=== PATIENT | female | born 1955 | race Caucasian/White ===

== ENCOUNTER 2018-02-23 21:04 | Observation (INO) ==
--- NOTE | 2018-02-23 21:33 | ED ---
HPI General Chief complaint: Stroke Alert Stated complaint: Neuro Symptoms Time Seen by Provider: 02/23/18 21:09 Source: patient Limitations: no limitations History of Present Illness HPI narrative: The patient is a 62 year old female who presents to the [facility] emergency department with a history of beginning to have an abnormal sensation in her head at approximately 8:35 to 8:40 PM tonight. The patient is visiting from out of town and residing at a hotel with her family. Her family was with her when this began. She reports that she has a sensation that her head is expanding and then aretha. She denies having a headache. She has not had any slurred speech, however she became anxious and then began to have difficulty with word finding ability. She reports having lower extremity weakness. She denies having any one-sided weakness. 1 of her family members is a nuclear radiologist and did a stroke assessment on her that showed no focal weakness. They deny her having any facial asymmetry. She does have a history of anxiety, however she is never had a panic attack quite like this previously. The patient does have a history of atrial fibrillation and is on Coumadin. Her last INR was checked and found to be therapeutic 3 weeks ago. The patient is on 5 mg of Coumadin alternating with 7.5. On review of systems otherwise, the patient denies having any known recent fevers, cough, congestion, neck pain , chest pain, shortness of breath, abdominal pain, vomiting, diarrhea, urinary symptoms, or other neurologic symptoms. Related Data Home Medications Medication Instructions Recorded Confirmed hydrochlorothiazide 12.5 mg PO DAILY 02/23/18 02/23/18 lisinopril 20 mg PO DAILY 02/23/18 02/23/18 dronedarone [Multaq] 400 mg PO BID 02/24/18 02/24/18 simvastatin 20 mg PO QPM 02/24/18 02/24/18 warfarin [Coumadin] 5 mg PO 4XW 02/24/18 02/24/18 warfarin [Coumadin] 7.5 mg PO 3XW 02/24/18 02/24/18 Allergies Allergy/AdvReac Type Severity Reaction Status Date / Time codeine Allergy Nausea Verified 02/23/18 21:20 Review of Systems ROS: all other systems reviewed are negative [facility] Medical History Medical History Afib (Acute) Diabetes mellitus (Acute) History of hysterectomy (Acute) Hypercholesteremia (Acute) Hypertension (Acute) PVC (premature ventricular contraction) (Acute) Pacemaker (Acute) Sick sinus syndrome (Acute) Sleep apnea (Acute) Surgical History Surgical History H/O cervical biopsy (Acute) History of delivery (Acute) Hx of cholecystectomy (Acute) Social History Social History Substance History: No History of Abuse Second Hand Smoke Exposure: No Smoking Status: Never smoker How Often Do You Have a Drink Containing Alcohol: Never Recent Travel in [facility] within the Last 8 Weeks: No Recent Out of Country Travel within the Last 8 Weeks: No Exam Const General: cooperative, well developed and acute distress (the patient reports feeling anxious regarding her symptoms.) mild Nutritional Appearance: well nourished and obese Orientation: alert, awake and oriented x3 HENMT Head: normocephalic and atraumatic Nose: no nasal discharge and no epistaxis Mouth: moist mucous membranes Throat: posterior oropharynx normal and uvula midline Eyes Sclera: normal sclerae Pupils: PERRL EOM: EOM intact bilaterally Neck Neck: no meningeal signs, trachea midline and no JVD Resp Effort & Inspection: no use of accessory muscles Auscultation: clear to auscultation bilaterally Cardio Rate: regular rate Rhythm: regular rhythm Heart Sounds: no gallops, no murmurs and no rubs GI Inspection: non-distended Palpation: soft, no hepatosplenomegaly and nontender Auscultation: normal bowel sounds Back/Spine/Pelvis Back: no CVA tenderness Skin General: dry skin (warm) Neuro General: alert, awake and oriented x3 Cranial Nerves: CN's II-XI intact bilaterally Speech: other (The patient had a recurrence of difficulty with word finding ability after finding out that her blood pressure was elevated. This lasted for a few minutes.) Motor: strength 5/5 throughout and no movement abnormalities noted Sensory Exam: no sensory deficits noted Extrem General: normal to inspection (No calf tenderness on palpation. 2+ pulses in all 4 extremities.), no clubbing, no cyanosis and edema (Trace pedal edema.) Laterality: bilaterally Psych Mood: congruent mood Affect: anxious affect Judgment: judgment good Course Reevaluation(s) Reevaluation #1: The patient was reexamined after coming back from CT scan and reports that her symptoms in her head have improved. She is able to name various objects around the room and "you cannot teach an old dog new tricks." Also on further questioning, the patient reports that she has had difficulty with word finding ability and confusion intermittently for months. On further questioning of her and the family they report that this has been an issue since the beginning of the year. The patient appears to be at her baseline of mentation and neuro exam currently. Time: 22:01 Consultations Consultation #1: The patient's case including history, pertinent physical examination findings, and laboratory studies were discussed with Dr. Ponce. As the patient is on Coumadin he recommended a stat INR. Soon as the patient arrives back from CT for CT scan of the brain, CTA of the head and neck, he recommended reassessment and calling him back on his cell phone. Time: 21:25 Consultation #2: I was called by the laboratory regarding the patient's INR being 1.3. I then spoke to Dr. Miranda again regarding this patient's case. He requests that the CTA of the head be read urgently as it has not been read at this time. A call will be placed out to the radiologist regarding this. Time: 22:17 Consultation #3: The patient's case was discussed with Dr. Malhotra. He reviewed the patient's CTA of the head and neck while I was on the phone with him. He did not see any signs of a retrievable thrombus. This was again communicated back to Dr. Ponce. He recommended that the patient be started on heparin and the patient be given Coumadin 10 mg p.o. The patient's case including history, pertinent physical examination findings, and laboratory studies were discussed with Dr. Benson. It was agreed that the patient would be admitted to the hospitalist service. Time: 22:19 Initial Documented Vital Signs Temperature 98.3 F 02/23/18 22:02 Pulse Rate 62 02/23/18 22:02 Respiratory Rate 19 02/23/18 22:02 Blood Pressure 145/66 H 02/23/18 22:02 Pulse Oximetry 98 02/23/18 22:02 Last Documented Vital Signs Temperature 97.8 F 02/24/18 00:59 Pulse Rate 60 02/24/18 00:59 Respiratory Rate 18 02/24/18 00:59 Blood Pressure 142/63 H 02/24/18 00:59 Pulse Oximetry 98 02/24/18 01:21 Critical Care Time Critical Care Time: Yes Total Critical Care Time: 38 Attestation: Aggregate critical care time was 38 minutes. Time to perform other separately billable procedures was not included in the critical care time. My time did not include minutes spent treating any other patients simultaneously or on activities that did not directly contribute to the patient's treatment. The services I provided to this patient were to treat and/or prevent clinically significant deterioration that could result in: Respiratory failure, versus progression of neurologic symptoms I provided critical care services requiring my management, as noted below: Chart data review, documentation time, medication orders and management, vital sign assessments/reviewing monitor data, ordering and reviewing lab tests, ordering and interpreting/reviewing x-rays and diagnostic studies, care of the patient and discussion of the patient with the admitting physicians. NIH Stroke Scale NIHSS Time Completed NIHSS Time Completed: 21:31 NIH Stroke Scale Level of Consciousness: 0-Alert Orientation Questions: 0-Answers both correct Responds to Commands: 0-Both tasks correct Gaze Eye Movement: 0-Horizontal movement WNL Visual Laboy: 0-No visual field defect Facial Movement: 0-Normal Motor Functions Arm LEFT: 0-No drift Motor Functions Arm RIGHT: 0-No drift Motor Functions Leg LEFT: 0-No drift Motor Functions Leg RIGHT: 0-No drift Limb Ataxia: 0-No ataxia Sensory Loss: 0-No sensory loss Best Language: 1-Mild aphasia (Initially, the patient had no speech problems, however after finding out that her blood pressure was elevated, the patient became anxious and was having difficulty with word finding ability. The patient 's family reports that she was having difficulty with word finding ability at the hotel.) Articulation: 0-Normal Extinction or Inattention Sensory: 0-Absent Total: 1 Medical Decision Making MDM Narrative Medical decision making narrative: During the course of the patient's emergency department visit, the patient's history, examination, and differential diagnosis were reviewed with the patient. The patient was placed on a 3d artist with oximetry and frequent blood pressure monitoring. The patient had IV access obtained and blood work sent for analysis. A stroke alert was called regarding this patient's case. The patient's blood sugar was found to be within normal limits, EKG shows an electronic atrial paced rhythm, sinus rhythm. Heart rate of 61. Initial blood pressure was 224 systolic. This rapidly improved to 170 systolic in route to CT. I spoke to Dr. Ponce, the neurologist business administration program chair regarding this patient's case. He agreed with the plan to proceed with CT scan of the brain without contrast followed by CT a of the head and neck. The patient was initially provided normal saline at 70 mL/h, the patient's head of the bed was placed flat. I-STAT revealed a sodium of 138, potassium 3.7, chloride 103, BUN 20, glucose 113, hemoglobin 12.2, creatinine 0.9. CT scan of the brain was called to me by the reading radiologist, as being negative. I called the lab to find out how much longer on PT/INR- at 1958 and they said "15 minutes". The patient on reexamination after coming back from CT he has had resolution of her symptoms. This was communicated back to Dr. Ponce. The patient was not thought to be a candidate for TPA administration as her symptoms were improved. The patient's INR came back at 1.3 and he recommended that the patient be started on heparin and given Coumadin 10 mg p.o. The patient's CTA of the head and neck showed no acute abnormality. The patient's results were discussed with the patient, including the plan of care. I explained that further testing and/ or monitoring is indicated based on the patient's history, examination, and/ or laboratory findings. Therefore, I recommended admission for additional evaluation. The patient expressed understanding and was agreeable with this plan. The patient was admitted to the hospital in guarded condition and sent to a bed under the care of the [facility] service. Medical Screen Exam Complete: Yes Emergency Medical Condition: Yes Differential Diagnosis Differential Diagnosis: Ischemic stroke, versus hemorrhagic stroke, versus anxiety disorder, versus encephalopathy, versus intracranial mass Medical Records Medical records reviewed: Yes I reviewed the patient's medical records. Lab Data Lab results reviewed: Yes I reviewed the patient's lab results. Result diagrams: 02/23/18 21:30 Lab Results 02/23/18 02/23/18 02/23/18 Range/Units 21:30 21:30 21:30 WBC 6.6 (4.0-11.0) th/mm3 RBC 3.99 L (4.00-5.30) mil/mm3 Hgb 11.7 (11.6-15.3) gm/dL POC Hgb (Calc) 12.2 (11.6-15.3) g/dL Hct 35.3 (35.0-46.0) % POC Hct 36.0 (35-46.0) % MCV 88.5 (80.0-100.0) fL MCH 29.4 (27.0-34.0) pg MCHC 33.2 (32.0-36.0) % RDW 14.1 (11.6-17.2) % Plt Count 242 (150-450) th/mm3 MPV 10.2 (7.0-11.0) fL Neut % (Auto) 44.7 (16.0-70.0) % Lymph % (Auto) 40.1 (9.0-44.0) % [place] % (Auto) 8.1 H (0.0-8.0) % Eos % (Auto) 6.1 H (0.0-4.0) % Baso % (Auto) 1.0 (0.0-2.0) % Neut # (Auto) 2.9 (1.8-7.7) th/mm3 Lymph # (Auto) 2.6 (1.0-4.8) th/mm3 [place] # (Auto) 0.5 (0.0-0.9) th/mm3 Eos # (Auto) 0.4 (0.0-0.4) th/mm3 Baso # (Auto) 0.1 (0.0-0.2) th/mm3 WBC Differential . Differential Comment Auto diff final PT 12.7 H (9.8-11.6) sec INR 1.3 Ratio APTT 31.1 H (24.3-30.1) sec Fibrinogen 242 (227-377) mg/dL POC Sodium 138 (137-144) mmol/L POC Potassium 3.7 (3.6-5.0) mmol/L POC Chloride 103 (102-111) mmol/L POC BUN 20 (5-21) mg/dL POC Creatinine 0.9 (0.6-1.3) mg/dL POC Glucose 113 H (68-110) mg/dL Total Creatine Kinase 92 (26-192) U/L Troponin I Less than 0.02 L (0.02-0.05) ng/mL Urine Color (Yellw/Straw) Urine Clarity (Clear) Urine pH (5.0-8.5) Ur Specific [place] (1.002-1.035) Urine Protein (Neg-Trace) mg/dL Urine Glucose (UA) (Negative) mg/dL Urine Ketones (Negative) mg/dL Urine Occult Blood (Negative) Urine Nitrate (Negative) Urine Bilirubin (Negative) Urine Urobilinogen (Less than 2) mg/dL Ur Leukocyte Esterase (Negative) Urine RBC (0-3) /hpf Urine WBC (0-5) /hpf Ur Squamous Epith Cells (0-5) /hpf Micro UA Comment Ur Microscopic Review Urine Culture Comments Urine Opiates Screen (Neg) Ur Barbiturates Screen (Neg) Ur Amphetamines Screen (Neg) U Benzodiazepines Scrn (Neg) Urine Cocaine Screen (Neg) U Cannabinoids Screen (Neg) Blood Type Antibody Screen 02/23/18 02/23/18 02/23/18 Range/Units 21:30 23:42 23:42 WBC (4.0-11.0) th/mm3 RBC (4.00-5.30) mil/mm3 Hgb (11.6-15.3) gm/dL POC Hgb (Calc) (11.6-15.3) g/dL Hct (35.0-46.0) % POC Hct (35-46.0) % MCV (80.0-100.0) fL MCH (27.0-34.0) pg MCHC (32.0-36.0) % RDW (11.6-17.2) % Plt Count (150-450) th/mm3 MPV (7.0-11.0) fL Neut % (Auto) (16.0-70.0) % Lymph % (Auto) (9.0-44.0) % [place] % (Auto) (0.0-8.0) % Eos % (Auto) (0.0-4.0) % Baso % (Auto) (0.0-2.0) % Neut # (Auto) (1.8-7.7) th/mm3 Lymph # (Auto) (1.0-4.8) th/mm3 [place] # (Auto) (0.0-0.9) th/mm3 Eos # (Auto) (0.0-0.4) th/mm3 Baso # (Auto) (0.0-0.2) th/mm3 WBC Differential Differential Comment PT (9.8-11.6) sec INR Ratio APTT (24.3-30.1) sec Fibrinogen (227-377) mg/dL POC Sodium (137-144) mmol/L POC Potassium (3.6-5.0) mmol/L POC Chloride (102-111) mmol/L POC BUN (5-21) mg/dL POC Creatinine (0.6-1.3) mg/dL POC Glucose (68-110) mg/dL Total Creatine Kinase (26-192) U/L Troponin I (0.02-0.05) ng/mL Urine Color Straw (Yellw/Straw) Urine Clarity Clear (Clear) Urine pH 7.0 (5.0-8.5) Ur Specific [place] 1.026 (1.002-1.035) Urine Protein Negative (Neg-Trace) mg/dL Urine Glucose (UA) Negative (Negative) mg/dL Urine Ketones Negative (Negative) mg/dL Urine Occult Blood Negative (Negative) Urine Nitrate Negative (Negative) Urine Bilirubin Negative (Negative) Urine Urobilinogen Less than 2 (Less than 2) mg/dL Ur Leukocyte Esterase Small H (Negative) Urine RBC Less than 1 (0-3) /hpf Urine WBC 3 (0-5) /hpf Ur Squamous Epith Cells <1 (0-5) /hpf Micro UA Comment Culture not ind Ur Microscopic Review Not Reportable Urine Culture Comments Culture not ind Urine Opiates Screen Neg (Neg) Ur Barbiturates Screen Neg (Neg) Ur Amphetamines Screen Neg (Neg) U Benzodiazepines Scrn Neg (Neg) Urine Cocaine Screen Neg (Neg) U Cannabinoids Screen Neg (Neg) Blood Type O Negative Antibody Screen Negative 02/24/18 Range/Units 01:11 WBC (4.0-11.0) th/mm3 RBC (4.00-5.30) mil/mm3 Hgb (11.6-15.3) gm/dL POC Hgb (Calc) (11.6-15.3) g/dL Hct (35.0-46.0) % POC Hct (35-46.0) % MCV (80.0-100.0) fL MCH (27.0-34.0) pg MCHC (32.0-36.0) % RDW (11.6-17.2) % Plt Count (150-450) th/mm3 MPV (7.0-11.0) fL Neut % (Auto) (16.0-70.0) % Lymph % (Auto) (9.0-44.0) % [place] % (Auto) (0.0-8.0) % Eos % (Auto) (0.0-4.0) % Baso % (Auto) (0.0-2.0) % Neut # (Auto) (1.8-7.7) th/mm3 Lymph # (Auto) (1.0-4.8) th/mm3 [place] # (Auto) (0.0-0.9) th/mm3 Eos # (Auto) (0.0-0.4) th/mm3 Baso # (Auto) (0.0-0.2) th/mm3 WBC Differential Differential Comment PT (9.8-11.6) sec INR Ratio APTT (24.3-30.1) sec Fibrinogen (227-377) mg/dL POC Sodium (137-144) mmol/L POC Potassium (3.6-5.0) mmol/L POC Chloride (102-111) mmol/L POC BUN (5-21) mg/dL POC Creatinine (0.6-1.3) mg/dL POC Glucose 112 H (68-110) mg/dL Total Creatine Kinase (26-192) U/L Troponin I (0.02-0.05) ng/mL Urine Color (Yellw/Straw) Urine Clarity (Clear) Urine pH (5.0-8.5) Ur Specific [place] (1.002-1.035) Urine Protein (Neg-Trace) mg/dL Urine Glucose (UA) (Negative) mg/dL Urine Ketones (Negative) mg/dL Urine Occult Blood (Negative) Urine Nitrate (Negative) Urine Bilirubin (Negative) Urine Urobilinogen (Less than 2) mg/dL Ur Leukocyte Esterase (Negative) Urine RBC (0-3) /hpf Urine WBC (0-5) /hpf Ur Squamous Epith Cells (0-5) /hpf Micro UA Comment Ur Microscopic Review Urine Culture Comments Urine Opiates Screen (Neg) Ur Barbiturates Screen (Neg) Ur Amphetamines Screen (Neg) U Benzodiazepines Scrn (Neg) Urine Cocaine Screen (Neg) U Cannabinoids Screen (Neg) Blood Type Antibody Screen Imaging Data Radiologist's impression: Chest X-Ray 02/23/18 21:24 CONCLUSION: The lungs are clear. Head CT 02/23/18 21:24 CONCLUSION: 1. Negative noncontrast CT brain. Report was called to Dr. Capps at 9:35 PM Head CTA 02/23/18 21:24 CONCLUSION: 1. Negative CTA of the [place]. Neck CTA 02/23/18 21:24 CONCLUSION: 1. No carotid stenosis seen. ECG Data Attestation: I personally reviewed and interpreted this ECG as follows: Interpretation: The patient had an EKG done on arrival that showed an electronic atrial paced rhythm heart rate of 61, QRS duration is 92 ms, QTC 427 ms. T waves are inverted in lead III, V1. No acute ST segment elevation. Discharge Plan Discharge Disposition Patient Disposition: 30 Still Patient Discharge Details Diagnosis: Transient neurologic deficit Physicians Team ED Provider: Haydee Capps Primary Care Provider: UNKNOWN, Attending Provider: Saul López Other Providers: Angela Perla ; Geneva Avila Discharge Interventions Interventions: ED Discharge Assessment Last Done: 02/24/18 00:46 Vital Signs Last Done: 02/23/18 22:37 Status ED Status: Left Department Discharge Information Discharge Date/Time: 02/24/18 00:48
--- NOTE | 2018-02-23 21:37 | CT ---
EXAM DATE: 02/23/2018 9:33 PM EDT AGE/SEX: 62 years / Female INDICATIONS: Stroke alert, altered mental status. CLINICAL DATA: This is the patient's initial encounter. Patient reports that signs and symptoms have been present for 1 day and indicates a pain score of Nonresponsive. MEDICAL/SURGICAL HISTORY: Non-responsive. Non-responsive. RADIATION DOSE: 66.34 CTDI (mGy) COMPARISON: No prior exams available for comparison. TECHNIQUE: CT of the head without contrast. Using automated exposure control and adjustment of the mA and/or kV according to patient size, radiation dose was kept as low as reasonably achievable to ob tain optimal diagnostic quality images. DICOM format image data is available electronically for revi ew and comparison. FINDINGS: Cerebrum: The ventricles are normal for age. No evidence of midline shift, mass lesion, hemorrhage or acute infarction. No extraaxial fluid collections are seen. Posterior Fossa: The cerebellum and brainstem are intact. The 4th ventricle is midline. The cerebe llopontine angle is unremarkable. Extracranial: The visualized portion of the orbits is intact. Skull: The calvaria is intact. No evidence of skull fracture. CONCLUSION: 1. Negative noncontrast CT brain. Report was called to Dr. Capps at 9:35 PM Electronically signed by: Sagar Storey MD 02/23/2018 9:36 PM EDT
[2018-02-23] MEDS: Sod Chloride 0.9% Inj 1,000 ML IV.CONT SCH (21:48)
[2018-02-23 21:53] LABS: Baso # (Auto) 0.1 th/mm3 (0.0-0.2); Eos # (Auto) 0.4 th/mm3 (0.0-0.4); Eos % (Auto) 6.1 % (0.0-4.0); Hematocrit 35.3 % (35.0-46.0); Hemoglobin 11.7 gm/dL (11.6-15.3); Lymph # (Auto) 2.6 th/mm3 (1.0-4.8); Lymph % (Auto) 40.1 % (9.0-44.0); Mean Corpuscular HGB Conc 33.2 % (32.0-36.0); Mean Corpuscular Hemoglobin 29.4 pg (27.0-34.0); Mean Corpuscular Volume 88.5 fL (80.0-100.0); Mean Platelet Volume 10.2 fL (7.0-11.0); Mono # (Auto) 0.5 th/mm3 (0.0-0.9); Mono % (Auto) 8.1 % (0.0-8.0); Neut # (Auto) 2.9 th/mm3 (1.8-7.7); Neut % (Auto) 44.7 % (16.0-70.0); Platelet Count 242 th/mm3 (150-450); Red Blood Count 3.99 mil/mm3 (4.00-5.30); Red Cell Distribution Width 14.1 % (11.6-17.2); White Blood Count 6.6 th/mm3 (4.0-11.0)
[2018-02-23 22:13] LABS: Activated Partial Thrombo Time 31.1 sec (24.3-30.1); INR 1.3 Ratio; Prothrombin Time 12.7 sec (9.8-11.6)
[2018-02-23 22:25] LABS: Creatine Kinase 92 U/L (26-192)
--- NOTE | 2018-02-23 22:25 | XR ---
EXAM DATE: 02/23/2018 10:20 PM EDT AGE/SEX: 62 years / Female INDICATIONS: Stroke alert. CLINICAL DATA: This is the patient's initial encounter. Patient reports that signs and symptoms have been present for 1 day and indicates a pain score of 0/10. MEDICAL/SURGICAL HISTORY: None. Pacemaker. COMPARISON: No prior exams available for comparison. FINDINGS: A single AP view of the chest demonstrates the lungs to be symmetrically aerated without evidence of mass, infiltrate or effusion. The cardiomediastinal contours are unremarkable. Osseous structures a re intact. Pacemaker with 2 cardiac leads. CONCLUSION: The lungs are clear. Electronically signed by: Sagar Storey MD 02/23/2018 10:24 PM EDT
--- NOTE | 2018-02-23 22:25 | CT ---
EXAM DATE: 02/23/2018 10:07 PM EDT AGE/SEX: 62 years / Female INDICATIONS: Stroke alert; weakness. CLINICAL DATA: This is the patient's initial encounter. Patient reports that signs and symptoms have been present for 1 day and indicates a pain score of 0/10. MEDICAL/SURGICAL HISTORY: None. None. RADIATION DOSE: 12.54 CTDI (mGy) COMPARISON: No prior exams available for comparison. TECHNIQUE: Volumetric scanning was performed using a multi-row detector CT scanner during bolus infu darcy of 50 ml Visipaque 320 (iodixanol) nonionic water-soluble contrast as a single exam dose. The data was post processed with a variety of visualization algorithms including full volume maximum int ensity projection, multi-planar sliding thin slab reformation, curved planar reformation, and surface rendering techniques. Using automated exposure control and adjustment of the mA and/or kV according to patient size, radiation dose was kept as low as reasonably achievable to obtain optimal diagnosti c quality images. DICOM format image data is available electronically for review and comparison. FINDINGS: There is excellent visualization of the major intracranial arteries out to the second-order branch ve ssels. The right posterior cerebral artery arises from the anterior circulation. Flow is seen in the anterior communicating artery. There is no evidence for aneurysm, vessel truncation or stenosis, and no evidence for vascular malformation. CONCLUSION: 1. Negative CTA of the [place]. Electronically signed by: Sagar Storey MD 02/23/2018 10:23 PM EDT
--- NOTE | 2018-02-23 22:34 | CT ---
EXAM DATE: 02/23/2018 10:11 PM EDT AGE/SEX: 62 years / Female INDICATIONS: Stroke alert; weakness. CLINICAL DATA: This is the patient's initial encounter. Patient reports that signs and symptoms have been present for 1 day and indicates a pain score of 0/10. MEDICAL/SURGICAL HISTORY: None. None. RADIATION DOSE: 11.67 CTDI (mGy) COMPARISON: No prior exams available for comparison. TECHNIQUE: Volumetric scanning was performed using a multirow detector CT scanner during bolus infus ion of 90 ml Visipaque 320 (iodixanol) nonionic water-soluble contrast as a single exam dose. The data was postprocessed with a variety of visualization algorithms including full-volume maximum inten sity projection, multiplanar sliding thin-slab reformation, curved-planar reformation, and surface-re ndering techniques. Using automated exposure control and adjustment of the mA and/or kV according to patient size, radiation dose was kept as low as reasonably achievable to obtain optimal diagnostic q uality images. DICOM format image data is available electronically for review and comparison. FINDINGS: Aortic Arch: There is a three-vessel origin of the great vessels from the aorta. No evidence of ost ial narrowing Right Carotid: The common carotid artery is intact. The carotid bulb has a concentric calcification without ulceration or narrowing. The internal carotid artery lumen is smooth without stenosis. The external carotid artery is intact. Left Carotid: The common carotid artery is intact. The carotid bulb has a concentric calcification without ulceration or narrowing. The internal carotid artery lumen is smooth without stenosis. The external carotid artery is intact. Vertebrals: Limited visualization of the vertebrals with left dominant system. Percent stenosis is calculated using the diameter of the stenotic region over the diameter of the nor mal distal internal carotid artery. CONCLUSION: 1. No carotid stenosis seen. Electronically signed by: Sagar Storey MD 02/23/2018 10:33 PM EDT
[2018-02-23] MEDS ORDERED: Dextrose 50% in Water 50 ML Vial IV.PUSH PRN (22:53)
[2018-02-23] MEDS: Heparin Drip 25,000 UNIT/250 ML BAG IV.CONT PRN (23:47)
[2018-02-23 23:54] LABS: Bilirubin,Urine Negative (Negative); Clarity,Urine Clear (Clear); Color,Urine Straw (Yellw/Straw); Glucose,Urine (UA) Negative (Negative); Leukocyte Esterase,Urine Small (Negative); Nitrite,Urine Negative (Negative); Specific Gravity,Urine 1.026 (1.002-1.035); Squamous Epithelial Cell,Urine <1 /hpf (0-5)
[2018-02-24] LABS: Amphetamine Screen,Urine Neg (Neg); Barbiturate Screen,Urine Neg (Neg); Cannabinoid Screen,Urine Neg (Neg); Cocaine Screen,Urine Neg (Neg)
[2018-02-24 00:01] LABS: Opiate Screen,Urine Neg (Neg)
[2018-02-24] MEDS ORDERED: Warfarin Consult Pharmacy OTHER PRN (04:15)
--- NOTE | 2018-02-24 04:16 | P.HPIM ---
History of Present Illness Primary Care Physician: UNKNOWN History of Present Illness: 62-year-old female with a atrial fibrillation, sick sinus syndrome status post pacemaker, diabetes mellitus, hyperlipidemia, hypertension, as well as sleep apnea compliant with CPAP who presents with acute onset dizzy/lightheaded sensation as well as confusion, unable to figure out what utensils to put on a dinner table last night around 8:40 PM. She says the sensation is difficult to describe. She says that her head feels "fuzzy, like a pressure feeling", denies any vision changes. She says that this is improved greatly since presentation to the ER. She denies any unilateral weakness. Denies any chest pain or shortness of breath. Family history reviewed with the patient and found to be currently noncontributory. Inpatient Certification: I certify that the inpatient services were ordered in accordance with Medicare regulations governing the order. This includes certification that hospital inpatient services are reasonable and necessary and in the case of services not specified as inpatient-only under 42 CFR 419.22(n), that they are appropriately provided as inpatient services in accordance to with the 2-midnight benchmark under 43 CFR 412.3(e) Estimated Total Length of Stay (Days): 2 Plans for Post Hospital Care: Home Review of Systems All other systems reviewed negative except as stated in HPI PMFSH - History History Provided By: Patient, Family Member - Medical History Medical History: Medical History (Last Updated 02/23/18 @ 22:21 by Aurelia Mcginnis RN) Afib Diabetes mellitus History of hysterectomy Hypercholesteremia Hypertension PVC (premature ventricular contraction) Pacemaker Sick sinus syndrome Sleep apnea - Surgical History Surgical History: Surgical History (Last Updated 02/23/18 @ 22:21 by Aurelia Mcginnis RN) H/O cervical biopsy History of delivery Hx of cholecystectomy - Tobacco History Second Hand Smoke Exposure: No Tobacco Use In Past 30 Days: No Smoking Status: Never smoker - Alcohol History How Often Do You Have a Drink Containing Alcohol: Never - Substance Use History Substance History: No History of Abuse - Travel History Recent Travel in the [place] Within the Last 8 Weeks: No Recent Travel Out of the Country Within the Last 8 Weeks: No - Immunization History Tetanus Immunization: >5 Years Hx Influenza Vaccine This Season: Yes Medications and Allergies Active Medications: Active Medications Aspirin (Aspirin Chew) 81 mg PO DAILY [place] Atorvastatin Calcium (Lipitor) 10 mg PO HS [place] Dextrose (D50w Vial) 50 ml IV.PUSH UNSCH PRN PRN Reason: PER HYPOGLYCEMIA PROTOCOL Glucagon (Glucagon Inj) 1 mg OTHER UNSCH PRN PRN Reason: for Hypoglycemia Protocol Sodium Chloride (Ns Inj) 1,000 mls @ 70 mls/hr IV.CONT .[id number] [facility] Last Admin: 02/23/18 21:48 Dose: 70 mls/hr Heparin Sodium/Dextrose (Heparin/D5w 25,000 U/250 Ml) 25,000 unit in 250 mls @ 0 mls/hr IV.CONT TITRATE PRN; Protocol PRN Reason: Per Protocol Last Admin: 02/23/18 23:47 Dose: 1,200 units/hr, 12 mls/hr Sodium Chloride (Ns Flush) 2 ml IV.FLUSH BID [place] Sodium Chloride (Ns Flush) 2 ml IV.FLUSH PRN PRN PRN Reason: FLUSH AFTER USING IV ACCESS Allergies Allergy/AdvReac Type Severity Reaction Status Date / Time codeine Allergy Nausea Verified 02/23/18 21:20 Home Medications Medication Instructions Recorded Confirmed Type hydrochlorothiazide 12.5 mg PO DAILY 02/23/18 02/23/18 History lisinopril 20 mg PO DAILY 02/23/18 02/23/18 History dronedarone [Multaq] 400 mg PO BID 02/24/18 02/24/18 History simvastatin 20 mg PO QPM 02/24/18 02/24/18 History warfarin [Coumadin] 5 mg PO 4XW 02/24/18 02/24/18 History warfarin [Coumadin] 7.5 mg PO 3XW 02/24/18 02/24/18 History Exam Vital signs: Vital Signs 02/23/18 22:02 02/23/18 22:34 02/23/18 22:37 Temperature 98.3 F 98.3 F Pulse Rate 62 60 Respiratory Rate 19 19 Blood Pressure 145/66 H 145/66 H Pulse Oximetry 98 98 98 02/24/18 00:59 02/24/18 01:21 Temperature 97.8 F Pulse Rate 60 Respiratory Rate 18 Blood Pressure 142/63 H Pulse Oximetry 98 98 Intake & Output 02/23/18 02/23/18 02/24/18 06:59 18:59 06:59 Weight 90.9 kg Other: Weight On Admission 94.8 kg Narrative: GENERAL: Patient sitting in bed. Appears comfortable. Alert and oriented 3. SKIN: Warm and dry. HEAD: Atraumatic. Normocephalic. EYES: Pupils equal and round. No scleral icterus. No injection or drainage. ENT: No nasal bleeding or discharge. Mucous membranes pink and moist. NECK: Trachea midline. No JVD. CARDIOVASCULAR: Regular rate and rhythm. RESPIRATORY: No accessory muscle use. Clear to auscultation. Breath sounds equal bilaterally. GASTROINTESTINAL: Abdomen soft, non-tender, nondistended. Hepatic and splenic margins not palpable. MUSCULOSKELETAL: Extremities without clubbing, cyanosis, or edema. No obvious deformities. NEUROLOGICAL: Awake and alert. No obvious cranial nerve deficits. Motor grossly within normal limits. Five out of 5 muscle strength in the arms and legs. Normal speech. PSYCHIATRIC: Appropriate mood and affect; insight and judgment normal. Results - Labs CBC & Chem 7: 02/23/18 21:30 Labs: Short CBC 02/23/18 Range/Units 21:30 WBC 6.6 (4.0-11.0) th/mm3 Hgb 11.7 (11.6-15.3) gm/dL Hct 35.3 (35.0-46.0) % Plt Count 242 (150-450) th/mm3 Cardiac Enzymes 02/23/18 Range/Units 21:30 Total Creatine Kinase 92 (26-192) U/L Troponin I Less than 0.02 L (0.02-0.05) ng/mL Urine 02/23/18 Range/Units 23:42 Urine Color Straw (Yellw/Straw) Urine Clarity Clear (Clear) Urine pH 7.0 (5.0-8.5) Ur Specific [place] 1.026 (1.002-1.035) Urine Protein Negative (Neg-Trace) mg/dL Urine Glucose (UA) Negative (Negative) mg/dL - Imaging Impressions Chest X-Ray 02/23/18 21:24 CONCLUSION: The lungs are clear. Head CT 02/23/18 21:24 CONCLUSION: 1. Negative noncontrast CT brain. Report was called to Dr. Capps at 9:35 PM Head CTA 02/23/18 21:24 CONCLUSION: 1. Negative CTA of the [place]. Neck CTA 02/23/18 21:24 CONCLUSION: 1. No carotid stenosis seen. Caprini VTE Risk Assessment Caprini VTE Risk Assessment: Moderate/High Risk (score >= 2) Caprini Risk Assessment Model: Point Value = 1 Point Value = 2 Point Value = 3 Point Value = 5 Age 41-60 Minor surgery BMI > 25 kg/m2 Swollen legs Varicose veins or History of unexplained or recurrent spontaneous Oral contraceptives or hormone replacement Sepsis (< 1 month) Serious lung disease, including pneumonia (< 1 month) Abnormal pulmonary function Acute myocardial infarction Congestive heart failure (< 1 month) History of inflammatory bowel disease Medical patient at bed rest Age 61-74 Arthroscopic surgery Major open surgery (> 45 min) Laparoscopic surgery (> 45 min) Malignancy Confined to bed (> 72 hours) Immobilizing plaster cast Central venous access Age >= 75 History of VTE Family history of VTE Factor V Leiden Prothrombin [id number] Lupus anticoagulant Anticardiolipin antibodies Elevated serum homocysteine Heparin-induced thrombocytopenia Other congenital or acquired thrombophilia Stroke (< 1 month) Elective arthroplasty Hip, pelvis, or leg fracture Acute spinal cord injury (< 1 month) Prophylaxis Regimen: Total Risk Factor Score Risk Level Prophylaxis Regimen 0-1 Low Early ambulation 2 Moderate Order ONE of the following: *Sequential Compression Device (SCD) *Heparin 5000 units SQ BID 3-4 Higher Order ONE of the following medications: *Heparin 5000 units SQ TID *Enoxaparin/Lovenox 40 mg SQ daily (WT < 150 kg, CrCl > 30 mL/min) *Enoxaparin/Lovenox 30 mg SQ daily (WT < 150 kg, CrCl > 10-29 mL/min) *Enoxaparin/Lovenox 30 mg SQ BID (WT < 150 kg, CrCl > 30 mL/min) AND/OR *Sequential Compression Device (SCD) 5 or more Highest Order ONE of the following medications: *Heparin 5000 units SQ TID (Preferred with Epidurals) *Enoxaparin/Lovenox 40 mg SQ daily (WT < 150 kg, CrCl > 30 mL/min) *Enoxaparin/Lovenox 30 mg SQ daily (WT < 150 kg, CrCl > 10-29 mL/min) *Enoxaparin/Lovenox 30 mg SQ BID (WT < 150 kg, CrCl > 30 mL/min) AND *Sequential Compression Device (SCD) Assessment and Plan - Plan //Suspected TIA -With history of atrial fibrillation. -CT angiogram head, neck, CT brain with no acute findings. = Neurochecks. = Heparin drip as per neurology. = Check echocardiogram. Neurology consult. Appreciate assistance. Holter monitor. //Atrial fibrillation. Continue Multaq. Continue warfarin. Pharmacy consulted for management. Appreciate assistance //Hyperlipidemia. Chronic. Continue home medication. Hypertension Allow permissive hypertension for now Discussed Condition With: Patient, nurse, ED physician. H&P: Quality - VTE Deep Vein Thrombosis/Pulmonary Embolism Present on Admission: No
[2018-02-24 06:47] LABS: Hematocrit 35.2 % (35.0-46.0); Hemoglobin 11.5 gm/dL (11.6-15.3); Mean Corpuscular HGB Conc 32.5 % (32.0-36.0); Mean Corpuscular Hemoglobin 29.5 pg (27.0-34.0); Mean Corpuscular Volume 90.7 fL (80.0-100.0); Mean Platelet Volume 10.2 fL (7.0-11.0); Platelet Count 217 th/mm3 (150-450); Red Blood Count 3.88 mil/mm3 (4.00-5.30); Red Cell Distribution Width 14.3 % (11.6-17.2); White Blood Count 4.3 th/mm3 (4.0-11.0)
[2018-02-24 07:12] LABS: Chol/HDL Ratio 2.59 Ratio; HDL Cholesterol 57.5 mg/dL (40.0-60.0)
--- NOTE | 2018-02-24 11:23 | MB ---
cc: Angela Perla MD DATE: 02/24/2018 REASON FOR CONSULTATION: Possible stroke. HISTORY OF PRESENT ILLNESS: This is a pleasant 62-year-old woman who was in her usual state of health last night, visiting from out of town I believe in [place], is here with her family, when she started to feel strange, like her head was expanding. She looked anxious, had trouble getting words out. She does not have a headache. Denied feeling weak on one side, but just felt funny all over. She apparently had stated that she had no focal weakness, did not have facial asymmetry; has a history of atrial fibrillation with a subtherapeutic INR. She takes 5 mg Coumadin alternating with 7.5; she does not miss doses. She has lost weight, as well as her diabetes is now very well controlled and is no longer on Janumet or metformin anymore. She seems to be back at baseline. She has a history of atrial fibrillation; her last problem with atrial fibrillation was about a year ago. She has a pacemaker, saw her network services project manager about a week ago. She has history of diabetes, hysterectomy, hyperlipidemia, hypertension, history of PVCs, pacemaker, sick sinus syndrome, sleep apnea, compliant on CPAP. HOME MEDICATIONS: Please refer to MAR, but she states she takes Multaq as well as her Coumadin. SOCIAL HISTORY: Does not smoke, drink alcohol. PHYSICAL EXAMINATION: VITAL SIGNS: Temperature is 97.9, pulse 60, respiratory rate 18, blood pressure 152/70, saturating 100% on room air. NECK: Supple. No appreciable bruits. HEART: Regular. NEUROLOGIC: She is awake, alert. She is oriented. She is fluent. Her pupils reactive. Visual soni are full. Her face is symmetrical. Tongue is midline. Facial sensation is normal. Normal hearing. Motor does not exhibit any drift or leg lag. Cerebellar testing is normal; strength throughout 5/5. DTRs are 1+. Toes withdraws. Gait is withheld at this time. LABORATORY DATA: Her PTT; she is on heparin, is 51.4. PT on admission was 12.7, INR on admission was 1.3. Chemistries: Hemoglobin A1c is pending, but she states it was about 5.4 last time; her glucose is 99, triglycerides 187, cholesterol 149, LDL 54, HDL 57.5. Troponin less than 0.02. Hemoglobin 11.5. Tox screen negative. Urine: Small leukocyte esterase. No culture indicated. IMAGING STUDIES: 1. CT of the brain was unremarkable. 2. CT of the [place] and [place] was intact as well. IMPRESSION: Possible transient ischemic attack due to subtherapeutic INR. PLAN: Recommend bridge with warfarin and heparin. Once her INR is 2, certainly, we can stop the heparin. An echo has been ordered. Get her out of bed with PT. Permissible hypertension, but certainly can start treatment today since her imaging is unremarkable. Put her back on her medicines, watch for any atrial fibrillation RVR. If stable, INR is therapeutic certainly can be discharged home; have her followup with her doctors in [place]. Continue current care. MD ALICE Peres/cj , 09:58 AM , 10:06 AM
[2018-02-24] MEDS: Sod Chloride 0.9% Inj 1,000 ML IV.CONT SCH (13:51)
--- NOTE | 2018-02-24 15:41 | ECHRPT ---
Indication: CVA / TIA CONCLUSIONS Normal left ventricular size. Wall thickness is normal. The left ventricular systolic function is normal with an estimated ejection fraction in the range of 55-60%. A pacemaker wire is noted. Trace mitral valve regurgitation. There is trace tricuspid valve regurgitation. The estimated pulmonary arterial pressure is 40 mmHg. BP: / HR: Rhythm: MEASUREMENTS (Male / Female) Normal Values Technical Quality:Good 2D ECHO LV Diastolic Diameter PLAX 4.1 cm 4.2 - 5.9 / 3.9 - 5.3 cm LV Systolic Diameter PLAX 3.1 cm IVS Diastolic Thickness 1.1 cm 0.6 - 1.0 / 0.6 - 0.9 cm LVPW Diastolic Thickness 1.1 cm 0.6 - 1.0 / 0.6 - 0.9 cm LV Relative Wall Thickness 0.6 RV Internal Dim ED PLAX 3.6 cm LVOT Diameter 2.0 cm Aortic Root Diameter 2.5 cm LA Systolic Diameter LX 3.8 cm 3.0 - 4.0 / 2.7 - 3.8 cm M-MODE AV Cusp Separation MM 2.0 cm DOPPLER AV Peak Velocity 193.0 cm/s AV Peak Gradient 14.9 mmHg LVOT Peak Velocity 149.0 cm/s LVOT Peak Gradient 8.9 mmHg AV Area Cont Eq pk 2.4 cm Mitral E Point Velocity 99.7 cm/s Mitral A Point Velocity 77.0 cm/s Mitral E to A Ratio 1.3 LV E' Lateral Velocity 8.5 cm/s Mitral E to LV E' Lateral Ratio 11.8 LV E' Septal Velocity 8.6 cm/s Mitral E to LV E' Septal Ratio 11.6 TR Peak Velocity 274.0 cm/s TR Peak Gradient 30.0 mmHg Right Atrial Pressure 10.0 mmHg Pulmonary Artery Systolic Pressu 40.0 mmHg Right Ventricular Systolic Press 40.0 mmHg PV Peak Velocity 138.0 cm/s PV Peak Gradient 7.6 mmHg FINDINGS LEFT VENTRICLE Normal left ventricular size. Wall thickness is normal. The left ventricular systolic function is normal with an estimated ejection fraction in the range of 55-60%. RIGHT VENTRICLE Normal right ventricular size and systolic function. A pacemaker wire is noted. LEFT ATRIUM The left atrial size is normal. RIGHT ATRIUM The right atrial size is normal. There is a pacemaker wire present in the right atrial cavity. ATRIAL SEPTUM Normal atrial septal thickness without atrial level shunting by limited color doppler interrogation. AORTA The aortic root and proximal ascending aorta are normal in size on limited imaging. MITRAL VALVE Trace mitral valve regurgitation. AORTIC VALVE Trileaflet aortic valve. TRICUSPID VALVE There is trace tricuspid valve regurgitation. The estimated pulmonary arterial pressure is 40 mmHg. PULMONARY VALVE No pulmonary valve regurgitation or stenosis. VESSELS The inferior vena cava is normal in size. PERICARDIUM No pericardial effusion. Edy Capps MD (Electronically Signed) Final Date:24 February 2018 15:40
[2018-02-24 18:06] LABS: Hemoglobin A1c 5.8 % (4.3-6.0)
--- NOTE | 2018-02-24 18:21 | ECG ---
Date Performed: 02/24/2018 Time Performed: 10:02:19 PTAGE: 62 years EKG: ELECTRONIC ATRIAL PACEMAKER NONSPECIFIC T-WAVE ABNORMALITY Since the previous tracing, no s ignificant change noted ABNORMAL RHYTHM ECG PREVIOUS TRACING : 02/23/2018 21.13 DOCTOR: Yash Catherine Interpretating Date/Time 02/24/2018 18:19:33
--- NOTE | 2018-02-24 18:21 | ECG ---
Date Performed: 02/23/2018 Time Performed: 21:13:07 PTAGE: 62 years EKG: ELECTRONIC ATRIAL PACEMAKER NONSPECIFIC T-WAVE ABNORMALITY ABNORMAL RHYTHM ECG NO PREVIOUS TRACING DOCTOR: Yash Catherine Interpretating Date/Time 02/24/2018 18:19:24
[2018-02-24] MEDS: Venlafaxine XR 37.5 MG Capsule PO SCH ×2 (18:22→20:02)
[2018-02-24] MEDS: Heparin Drip 25,000 UNIT/250 ML BAG IV.CONT PRN (20:37)
[2018-02-24] MEDS ORDERED: Fenofibrate 145 MG Tablet PO SCH (21:00)
[2018-02-25] MEDS: Sod Chloride 0.9% Inj 1,000 ML IV.CONT SCH (02:06)
[2018-02-25 06:56] LABS: Hematocrit 34.1 % (35.0-46.0); Hemoglobin 11.4 gm/dL (11.6-15.3); Mean Corpuscular HGB Conc 33.3 % (32.0-36.0); Mean Corpuscular Hemoglobin 29.2 pg (27.0-34.0); Mean Corpuscular Volume 87.8 fL (80.0-100.0); Mean Platelet Volume 10.4 fL (7.0-11.0); Platelet Count 194 th/mm3 (150-450); Red Blood Count 3.89 mil/mm3 (4.00-5.30); Red Cell Distribution Width 14.4 % (11.6-17.2); White Blood Count 3.6 th/mm3 (4.0-11.0)
[2018-02-25 06:59] LABS: Activated Partial Thrombo Time 60.6 sec (24.3-30.1); INR 1.4 Ratio; Prothrombin Time 14.6 sec (9.8-11.6)
[2018-02-25 08:16] VITALS: RESP 19
[2018-02-25] MEDS: Venlafaxine XR 37.5 MG Capsule PO SCH (09:51)
[2018-02-25 12:21] VITALS: BP 132/68; PULSE 63; TEMP 98.1; O2SAT 97
--- NOTE | 2018-02-25 12:31 | P.PN ---
Subjective Interval history: Patient is seen in room. Her daughter is bedside. Patient tells me she is ready to go home. No further episodes of dizziness or syncope. No chest pain or shortness of breath. No nausea or vomiting. Discussed options including bridging with Lovenox until Coumadin is therapeutic -included risks of bleeding both GI and stroke -patient indicated understanding of risks and would like to move forward with therapy. She plans to follow-up with her service officer who currently manages her Coumadin as soon as possible. She does have a home INR machine and will be checking daily until she obtains therapeutic level of 2-3 at which point she will stop Lovenox. Physical Exam Vital signs: Vital Signs 02/24/18 16:00 02/24/18 20:00 02/25/18 00:00 Temperature 98.3 F 98.3 F 97.6 F Pulse Rate 60 60 60 Respiratory Rate 17 18 18 Blood Pressure 168/80 H 180/84 H 158/75 H Pulse Oximetry 96 99 60 L 02/25/18 04:00 02/25/18 04:19 02/25/18 08:00 Temperature 97.7 F 97.6 F Pulse Rate 60 60 61 Respiratory Rate 18 19 Blood Pressure 149/69 H 165/71 H Pulse Oximetry 100 100 02/25/18 09:00 Temperature Pulse Rate 62 Respiratory Rate Blood Pressure Pulse Oximetry Intake & Output 02/24/18 02/25/18 02/25/18 18:59 06:59 18:59 Intake Total 2662 / 2662 1250 / 1250 Balance 2662 / 2662 1250 / 1250 Intake: IV 1000 / 1000 1250 / 1250 Heparin/D5W 25,000 U/250 mL 25, 250 / 250 000 unit In 250 ml @ Per Protocol IV.CONT TITRATE PRN Rx #:[id number] NS Inj 1,000 ML @ 70 mls/hr IV. 1000 / 1000 1000 / 1000 CONT .[id number] [facility] Rx#:[id number] Oral 1662 / 1662 Other: # Voids 7 5 Date of Last Bowel Movement 02/23/18 02/23/18 # Bowel Movements 0 Narrative: GENERAL: Well-nourished, well-developed adult female in no obvious distress. SKIN: Warm and dry. HEAD: Atraumatic. Normocephalic. CARDIOVASCULAR: Regular rate and rhythm. RESPIRATORY: No accessory muscle use. Clear to auscultation. Breath sounds equal bilaterally. GASTROINTESTINAL: Abdomen soft, non-tender, non-distended. Positive bowel sounds. MUSCULOSKELETAL: Extremities without clubbing, cyanosis, or edema. No obvious deformities. NEUROLOGICAL: Awake and alert. No obvious cranial nerve deficits. Motor grossly within normal limits. Normal speech. PSYCHIATRIC: Appropriate mood and affect; insight and judgment good. Results - Labs CBC & Chem 7: 02/25/18 06:20 Laboratory Results - last 24 hr 02/24/18 02/25/18 02/25/18 06:23 06:20 06:20 WBC 3.6 L RBC 3.89 L Hgb 11.4 L Hct 34.1 L MCV 87.8 MCH 29.2 MCHC 33.3 RDW 14.4 Plt Count 194 MPV 10.4 PT 14.6 H INR 1.4 APTT 60.6 H Hemoglobin A1c 5.8 Assessment and Plan - Plan //Suspected TIA -With history of atrial fibrillation. -CT angiogram head, neck, CT brain with no acute findings. = Neurochecks. = Heparin drip as per neurology - neurology has agreed to allow patient to be discharged with Lovenox to bridge until heparin is therapeutic. = Echo and Holter with no significant findings. //Atrial fibrillation. Continue Multaq. Continue warfarin. Pharmacy consulted for management. Appreciate assistance //Hyperlipidemia. Chronic. Continue home medication. Hypertension Allow permissive hypertension for now Discussed Condition With: Patient, nurse, Dr. Lanza
--- NOTE | 2018-02-25 12:49 | P.DS ---
Date of admission: 02/23/18 22:51 Primary care physician: UNKNOWN Attending physician on discharge: Kt Lanza Anticipated date of discharge: 02/25/18 Brief History from admission: 62-year-old female with a atrial fibrillation, sick sinus syndrome status post pacemaker, diabetes mellitus, hyperlipidemia, hypertension, as well as sleep apnea compliant with CPAP who presents with acute onset dizzy/lightheaded sensation as well as confusion, unable to figure out what utensils to put on a dinner table last night around 8:40 PM. She says the sensation is difficult to describe. She says that her head feels "fuzzy, like a pressure feeling", denies any vision changes. She says that this is improved greatly since presentation to the ER. She denies any unilateral weakness. Denies any chest pain or shortness of breath. Family history reviewed with the patient and found to be currently noncontributory. DS: Diagnosis - Discharge Diagnosis (1) Subtherapeutic anticoagulation Status: Acute (2) Transient neurologic deficit Status: Acute DS: Medications - Discharge Medications Prescriptions: enoxaparin [Lovenox] 130 mg SUBCUT DAILY #5 ml enoxaparin [Lovenox] 120 mg SUBCUT DAILY #5 ml DS: Summary Hospital Course: Patient is a 62-year-old female who was visiting the area on vacation from [place] when she had an episode of dizziness and a "fuzzy" feeling. She became concerned due to her history of A. fib and presented to the emergency room. Patient quickly recovered to baseline and had no further episodes. She was found to be subtherapeutic on her INR and was started on a heparin drip to bridge to therapeutic INR per neurology. Imaging and evaluation indicated no acute process or evidence of stroke. She does have both primary and cardiology providers in her home town of [place] and most recently saw her industrial equipment mechanic about a week ago. Apparently recent changes in diet affected her Coumadin levels. Pt agrees to discharge on lovenox as bridge until therapeutic on Coumadin; patient has her own INR monitoring machine and will check daily. Lovenox 120 mg dose selected due to availability. - Time Spent with Patient Total time spent providing and/or coordinating discharge services: Less than 30 minutes - Quality: Stroke Last date observed well: 02/23/18 Last time observed well: 20:40 - Quality: VTE Deep Vein Thrombosis/Pulmonary Embolism Present on Admission: No Exam Vital signs: Vital Signs 02/24/18 16:00 02/24/18 20:00 02/25/18 00:00 Temperature 98.3 F 98.3 F 97.6 F Pulse Rate 60 60 60 Respiratory Rate 17 18 18 Blood Pressure 168/80 H 180/84 H 158/75 H Pulse Oximetry 96 99 60 L 02/25/18 04:00 02/25/18 04:19 02/25/18 08:00 Temperature 97.7 F 97.6 F Pulse Rate 60 60 61 Respiratory Rate 18 19 Blood Pressure 149/69 H 165/71 H Pulse Oximetry 100 100 02/25/18 09:00 02/25/18 12:00 Temperature 98.1 F Pulse Rate 62 63 Respiratory Rate 19 Blood Pressure 132/68 Pulse Oximetry 97 Intake & Output 02/24/18 02/25/18 02/25/18 18:59 06:59 18:59 Intake Total 2662 / 2662 1250 / 1250 Balance 2662 / 2662 1250 / 1250 Intake: IV 1000 / 1000 1250 / 1250 Heparin/D5W 25,000 U/250 mL 25, 250 / 250 000 unit In 250 ml @ Per Protocol IV.CONT TITRATE PRN Rx #:[id number] NS Inj 1,000 ML @ 70 mls/hr IV. 1000 / 1000 1000 / 1000 CONT .[id number] [facility] Rx#:[id number] Oral 1662 / 1662 Other: # Voids 7 5 Date of Last Bowel Movement 02/23/18 02/23/18 # Bowel Movements 0 Narrative: GENERAL: Well-nourished, well-developed adult female in no obvious distress. SKIN: Warm and dry. HEAD: Atraumatic. Normocephalic. CARDIOVASCULAR: Regular rate and rhythm. RESPIRATORY: No accessory muscle use. Clear to auscultation. Breath sounds equal bilaterally. GASTROINTESTINAL: Abdomen soft, non-tender, non-distended. Positive bowel sounds. MUSCULOSKELETAL: Extremities without clubbing, cyanosis, or edema. No obvious deformities. NEUROLOGICAL: Awake and alert. No obvious cranial nerve deficits. Motor grossly within normal limits. Normal speech. PSYCHIATRIC: Appropriate mood and affect; insight and judgment good. Results Procedures completed during hospitalization: none Labs on day of discharge: Labs from last 24 hours 09/02/25/18 02/24/18 06:20 06:20 06:23 WBC 3.6 L RBC 3.89 L Hgb 11.4 L Hct 34.1 L MCV 87.8 MCH 29.2 MCHC 33.3 RDW 14.4 Plt Count 194 MPV 10.4 PT 14.6 H INR 1.4 APTT 60.6 H Hemoglobin A1c 5.8 - Impressions ITS Impressions Chest X-Ray 02/23/18 21:24 CONCLUSION: The lungs are clear. Head CT 02/23/18 21:24 CONCLUSION: 1. Negative noncontrast CT brain. Report was called to Dr. Capps at 9:35 PM Head CTA 02/23/18 21:24 CONCLUSION: 1. Negative CTA of the [place]. Neck CTA 02/23/18 21:24 CONCLUSION: 1. No carotid stenosis seen. Discharge Plan - Discharge Disposition Patient Disposition: 01 Discharge Home - Discharge Condition Condition: Stable - Discharge Order Discharge Orders: Discharge Order (Routine); Ordered 02/25/18 Ordered By: Amy Michaud - Physicians Team Primary Care Provider: UNKNOWN, Attending Provider: Kt Lanza Other Providers: Angela Perla MD ; Geneva Avila MD
[2018-02-25] MEDS ORDERED: Enoxaparin Inj 150 MG/ML Syringe SQ SCH (14:00)
[2018-02-25] MEDS ORDERED: Enoxaparin Inj 120 MG/0.8 ML Syringe SQ SCH (16:00)
--- NOTE | 2018-02-25 21:06 | HM ---
Date Performed: 02/24/2018 Time Performed: 10:18:00 HOOKUP DATE: 02/24/18 10:18:00 AM Tue ANALYSIS START TIME: 02/24/2018 10:23:00 AM ANALYSIS END TIME: 02/25/2018 7:15:42 AM PATIENT AGE: 62 PATIENT HEIGHT PATIENT WEIGHT DRUG LIST PATIENT DIAGNOSIS: neuro symptoms TEST NARRATIVE: The patient's average heart rate was 61 BPM. No episodes of tachycardia wer e noted. No episodes of bradycardia were noted. No pauses exceeding 2.0 seconds were noted. 31 ventricular ectopics, which represented < 1% of the total beat count, were noted. The highest bal tricular ectopic frequency occurred from 02:00 AM to 03:00 AM Wed. During this time 25 VE(s) occurre d. Ventricular ectopics were observed as 2 isolated beat(s), as 2 couplet(s) and as 4 run(s). 17 supraventricular ectopics, which represented < 1% of the total beat count, were noted. The highest supraventricular ectopic frequency occurred from 04:00 AM to 05:00 AM Wed. During this time 5 SVE(s) occurred. No episodes of ST depression (defined as -1.0 mm or more) were noted in channel 1. No episodes of ST depression (defined as -1.0 mm or more) were noted in channel 2. No episodes of ST d epression (defined as -1.0 mm or more) were noted in channel 3. TEST INTERPRETATION: Sinus rhythm Occasional PVCs and PACs Intermittent ventricular pacing Signed by : Rekha Sanchez
== END 2018-02-25 15:47 | disposition home or self-care (01) ==
LOC: NEPE 21:04 → OBSVTOIN 22:51 → INTOOBSV 22:51 → NEDA 22:51 → N05 02-24 00:45
PROVIDERS: ADMIT Hospitalist; ATTEND Hospitalist